=== PATIENT | male | born 1950 | race Caucasian/White ===

== ENCOUNTER 2019-08-12 06:00 | Day surgery (SDC) | payer MEDICARE ==
[2019-08-12] MEDS ORDERED: Sodium Chloride 0.9% 1,000 ML IV SCH (06:30)
[2019-08-12] MEDS ORDERED: Bupivacaine 0.5%/EPINEPHrine 1:200,000 50 ML MDV ONE (06:50)
[2019-08-12] MEDS ORDERED: metroNIDAZOLE/Normal Saline 500 MG in Premix Bag 1 BAG IV ONE (07:00)
[2019-08-12] MEDS ORDERED: ceFAZolin 2 GM in Premix Bag 1 BAG IV ONE (07:00)
[2019-08-12] MEDS ORDERED: Propofol 200 MG/20 ML SDV ONE ×2 (07:17→08:23)
[2019-08-12] MEDS ORDERED: Midazolam 1 MG/ML 2 ML SDV ONE (07:17)
[2019-08-12] MEDS ORDERED: fentaNYL 100 MCG/2 ML SDV ONE (07:17)
[2019-08-12] MEDS ORDERED: Ropivacaine 40 ML, dexAMETHasone 8 MG, EPINEPHrine 0.4 MG, Sodium Chloride 0.9% 37.6 ML NERVRT SCH ×4 (08:30)
[2019-08-12] MEDS ORDERED: Acetaminophen/HYDROcodone 325-5 MG Tab PO ONE (09:29)
[2019-08-12 10:17] VITALS: BP 124/79; PULSE 66
--- NOTE | 2019-08-13 09:03 | OR ---
DATE OF PROCEDURE: 08/12/2019 SURGEON: Andrés Chris MD PROCEDURE: Repair of ventral hernia, midline, 3.5 cm, with mesh. PREOPERATIVE DIAGNOSIS: Ventral hernia, incarcerated. POSTOPERATIVE DIAGNOSIS: Ventral hernia, incarcerated. COMPLICATIONS: None. LOSS CONTROL REPRESENTATIVE: None. ANESTHESIA: MAC/local. RISKS: Risks, benefits, alternatives, and limitations including, but not limited to infection, bleeding, injury to abdominal structures and other risks not listed here were explained to the patient, who wished to proceed. PROCEDURE IN DETAIL: The patient was placed in supine position. The 15 blade was used to excise a vertical incision to the left of the umbilicus. This was then carried down with the plasma blade to the fascia. The sac was identified, opened, and was noted to be incarcerated. The sac was then mobilized and subsequently removed. No evidence of enterotomy or injury was noted. The hernia was measured to be approximately 3.5 cm. This was then repaired by placing the mesh, which is approximately 8 cm, placing in the abdomen, then suturing with interrupted 0 Prolene approximately every 5 mm. The subcutaneous tissue was then closed with 3-0 Vicryl. Skin was closed with 4-0 Vicryl. Dermabond was applied. The patient tolerated the procedure well. Andrés Chris MD /[id number]
--- NOTE | 2019-08-13 09:03 | OR ---
DATE OF PROCEDURE: 08/12/2019 SURGEON: Andrés Chris MD PROCEDURE: Rectus sheath block, bilaterally. COMPLICATIONS: None. FLEXIBLE NANNY: None. RISKS: Risks, benefits, alternatives, and limitations including, but not limited to infection, bleeding, and injury to abdominal structures. PREOPERATIVE DIAGNOSIS: Requirement for nerve block. POSTOPERATIVE DIAGNOSIS: Requirement for nerve block. DESCRIPTION OF PROCEDURE: The patient was placed in the supine position. The left rectus sheath was identified first. This was identified using 13 megahertz ultrasound probe. This was injected with 80% of the solution. The right side was then performed in the same manner, same fashion, same technique, in the same sequence, using the same equipment, except for different needle and syringe. The patient tolerated the procedure well. Andrés Chris MD /[id number]
== END 2019-08-12 10:44 | disposition home or self-care (01) ==
LOC: JP.SDS 06:00
PROVIDERS: ATTEND Surgery
DX: K43.6 Other and unspecified ventral hernia with obstruction, without gangrene (principal); J45.909 Unspecified asthma, uncomplicated; E78.5 Hyperlipidemia, unspecified; F41.9 Anxiety disorder, unspecified; E66.9 Obesity, unspecified; Z91.012 Allergy to eggs; Z68.26 Body mass index [BMI] 26.0-26.9, adult
CPT/HCPCS: 49561; 49568; A9270; C1781; J0171; J0690; J1100; J2250; J2704; J2795; J3010; J3490; J7030; J7050

== ENCOUNTER 2020-05-31 08:46 | Emergency (ER) | payer MEDICARE ==
[2020-05-31 08:59] VITALS: BP 157/99; PULSE 83
[2020-05-31] MEDS ORDERED: Lidocaine 1% with EPINEPHrine 1:100,000 50 ML MDV SUBCUT STA (09:15)
[2020-05-31] MEDS ORDERED: Bacitracin Oint 1 GM U/D Packet TOP ONE (09:15)
--- NOTE | 2020-05-31 09:18 | EDM.PDOC ---
ED HPI GENERAL MEDICAL PROBLEM - General Chief Complaint: Laceration Stated Complaint: CUT BACK OF RIGHT HAND Time Seen by Provider: 05/31/20 09:13 Source of Information: Reports: Patient, Family, RN Notes Reviewed History Limitations: Reports: No Limitations - History of Present Illness INITIAL COMMENTS - FREE TEXT/NARRATIVE: 69-year-old gentleman presents emergency department day with a laceration to the dorsal surface of his hand on the right side he injured himself while he was doing the dishes and a glass broke he has no functional complaints states his tetanus is up-to-date he got it last year - Related Data Allergies Allergy/AdvReac Type Severity Reaction Status Date / Time erythromycin base Allergy Indigestion Verified 05/31/20 09:02 [Erythromycin Base] tree nuts Allergy Severe Difficulty Uncoded 05/31/20 09:02 Breathing raw eggs Allergy Difficulty Uncoded 05/31/20 09:02 Breathing Home Meds: Home Meds ALPRAZolam [Alprazolam] 0.5 mg PO TID PRN 07/27/13 [History] Albuterol [Ventolin HFA] 2 puff INH Q4HR PRN 07/27/13 [History] Sertraline HCl 75 mg PO DAILY 07/27/13 [History] Multivitamin with Minerals [Multiple Vitamin] 1 tab PO DAILY 10/10/14 [History] [place]-3 Fatty Acids [Fish Oil] 1,200 mg PO DAILY 10/10/14 [History] Acetaminophen [Tylenol] 650 mg PO Q6H PRN 08/09/19 [History] Pravastatin [Pravachol] 20 mg PO BEDTIME 08/09/19 [History] Metoprolol Tartrate [Lopressor] 50 mg PO DAILY 05/31/20 [History] Past Medical History HEENT History: Reports: Impaired Vision Other HEENT History: wears glasses Cardiovascular History: Reports: Arrhythmia, High Cholesterol, SOB on Exertion, Other (See Below) Other Cardiovascular History: PVC's Respiratory History: Reports: Asthma, Bronchitis, Recurrent Gastrointestinal History: Reports: Hemorrhoids Musculoskeletal History: Reports: Arthritis Neurological History: Reports: Headaches, Chronic Psychiatric History: Reports: Anxiety - Infectious Disease History Infectious Disease History: Reports: Chicken Pox, Measles, Mumps, Rubella, Shingles - Past Surgical History HEENT Surgical History: Reports: None Cardiovascular Surgical History: Reports: Other (See Below) Other Cardiovascular Surgeries/Procedures: ablasion for irregualr heart beat Respiratory Surgical History: Reports: None GI Surgical History: Reports: Colonoscopy Neurological Surgical History: Reports: None Musculoskeletal Surgical History: Reports: None Dermatological Surgical History: Reports: None Social & Family History - Family History HEENT: Reports: Cataract Cardiac: Reports: Other (See Below) Other Cardiac Family History: heart valve problems-mother GI: Reports: Diverticulitis, Other (See Below) Other GI Family History: colitis; ulcers Musculoskeletal: Reports: Back pain, Chronic Neurological: Reports: Dementia, Other (See Below) Other Neurological Family History: begnign brain tumor Oncologic: Reports: Prostate - Tobacco Use Tobacco Use Status *Q: Never Tobacco User - Caffeine Use Caffeine Use: Reports: None ED ROS GENERAL - Review of Systems Review Of Systems: See Below Musculoskeletal: Reports: No Symptoms Skin: Reports: Wound Neurological: Reports: No Symptoms ED EXAM, SKIN/RASH Exam: See Below Text/Narrative:: Examination of the right hand there is laceration approximately 4 cm dorsal surface of the right hand it is between digits 2 and 3 completely through the dermis no functional complaints can move all digits without difficulty sensation is intact radial pulses +2 Exam Limited By: No Limitations General Appearance: Alert, WD/WN, No Apparent Distress ED SKIN PROCEDURES - Laceration/Wound Repair Right Hand Appearance: Subcutaneous, Linear Distal NVT: Neuro & Vascular Intact, No Tendon Injury Anesthetic Type: Local Local Anesthesia - Lidocaine (Xylocaine): 1% with EPI Local Anesthetic Volume: 3cc Skin Prep: Saline Saline Irrigation (cc's): 60 Exploration/Debridement/Repair: Wound Explored, In a Bloodless Field, Explored to Base Closed with: Sutures Lac/Wound length In cm: 4 Suture Size: 3-0 # of Sutures: 11 Suture Type: Interrupted, Running Sterile Dressing Applied: Nurse Tetanus Status Addressed: Yes Complications: No Course - Vital Signs Last Recorded V/S: Last Vital Signs Temp 97.9 F 05/31/20 08:59 Pulse 83 05/31/20 08:59 Resp 16 05/31/20 08:59 BP 157/99 H 05/31/20 08:59 Pulse Ox 97 05/31/20 08:59 - Orders/Labs/Meds Meds: Medications Discontinued Medications Generic Name Dose Route Start Last Admin Trade Name Freq PRN Reason Stop Dose Admin Bacitracin 1 dose 05/31/20 09:15 05/31/20 09:34 Bacitracin Oint 1 Gm U/D Packet TOP 05/31/20 09:16 1 dose ONETIME ONE Administration Lidocaine/Epinephrine 20 ml 05/31/20 09:15 05/31/20 09:35 Lidocaine 1% With Epinephrine 1:100,000 50 Ml Mdv SUBCUT 05/31/20 09:16 20 ml NOW STA Administration Departure - Departure Time of Disposition: 09:41 Disposition: Home, Self-Care 01 Condition: Good Clinical Impression: Laceration of right hand Qualifiers: Encounter type: initial encounter Foreign body presence: without foreign body Qualified Code(s): S61.411A - Laceration without foreign body of right hand, initial encounter - Discharge Information Instructions: Laceration Care, Adult Referrals: Hiren Panda MD [Primary Care Provider] - Forms: ED Department Discharge Additional Instructions: Suture removal in 10 days follow wound care instruction sheet return to the emergency department or follow-up primary care Sepsis Event Note (ED) - Evaluation Sepsis Screening Result: No Definite Risk - Focused Exam Vital Signs: Vital Signs Temp Pulse Resp BP Pulse Ox 05/31/20 08:59 97.9 F 83 16 157/99 H 97 05/31/20 08:57 97.9 F 83 16 157/99 H 97 - Assessment/Plan Plan: Assessment Acuity = acute Site and laterality = 4 cm laceration right hand Etiology = trauma with glass Manifestations = none Location of injury = Home Lab values = none Plan Suture removal in 10 days follow wound care instruction sheet return to the emergency department or follow-up primary care This note was dictated using Divshot recognition software please call with any questions on syntax or grammar.
== END 2020-05-31 10:03 | disposition home or self-care (01) ==
LOC: JP.ED 08:46
DX: S61.411A Laceration without foreign body of right hand, initial encounter (principal); E78.00 Pure hypercholesterolemia, unspecified; J45.909 Unspecified asthma, uncomplicated; Z88.1 Allergy status to other antibiotic agents; Z91.018 Allergy to other foods; Z91.012 Allergy to eggs; Z79.899 Other long term (current) drug therapy; W25.XXXA Contact with sharp glass, initial encounter
CPT/HCPCS: 12002; 99282-25

== ENCOUNTER 2020-08-24 07:42 | Day surgery (SDC) | payer MEDICARE ==
[2020-08-24] MEDS ORDERED: Propofol 200 MG/20 ML SDV ONE (08:28)
[2020-08-24] MEDS ORDERED: fentaNYL 100 MCG/2 ML SDV ONE (08:28)
[2020-08-24] MEDS ORDERED: Midazolam 1 MG/ML 2 ML SDV ONE ×2 (08:29→09:39)
[2020-08-24] MEDS ORDERED: Sodium Chloride 0.9% 1,000 ML IV SCH (08:30)
[2020-08-24 10:58] VITALS: BP 116/70; PULSE 62
--- NOTE | 2020-08-24 11:58 | OR ---
DATE OF PROCEDURE: 08/24/2020 SURGEON: Andrés Chris MD PROCEDURE: Colonoscopy. PREOPERATIVE DIAGNOSIS: Screening colonoscopy. POSTOPERATIVE DIAGNOSIS: Screening colonoscopy. RISKS: Risks, benefits, alternatives, limitations, including but not limited to infection, bleeding, perforation, false positives and false negatives were explained to the patient who wished to proceed. PROCEDURE IN DETAIL: The patient was placed in left lateral decubitus position. Digital rectal exam was performed without abnormality. Scope was introduced and advanced atraumatically to the ileocecal valve. Scope was brought back to the ascending, transverse, descending colon, and retroflexed. No evidence of old or new blood. No masses. No polyps. No diverticulosis. No abnormalities on retroflexion. Greater than 8 minutes was spent removing the scope. Prep was acceptable, approximately 85% of the luminal surface with some solid and liquid stool remaining. The patient tolerated the procedure well. Andrés Chris MD /[id number]
== END 2020-08-24 10:27 | disposition home or self-care (01) ==
LOC: JP.SDS 07:42
PROVIDERS: ATTEND Surgery
DX: Z12.11 Encounter for screening for malignant neoplasm of colon (principal); J45.909 Unspecified asthma, uncomplicated
CPT/HCPCS: G0121; J2250; J2704; J3010; J7030

== ENCOUNTER 2020-12-20 12:17 | Emergency (ER) | payer MEDICARE ==
[2020-12-20] MEDS ORDERED: busPIRone 10 MG Tab PO ONE (13:51)
--- NOTE | 2020-12-20 14:02 | EDM.PDOC ---
ED HPI GENERAL MEDICAL PROBLEM - General Chief Complaint: General Stated Complaint: POSSIBLE HIGH BLOOD PRESSURE Time Seen by Provider: 12/20/20 13:30 Source of Information: Reports: Patient, Family, RN Notes Reviewed History Limitations: Reports: No Limitations - History of Present Illness INITIAL COMMENTS - FREE TEXT/NARRATIVE: Benigno presents today for complaints of anxiety and elevated blood pressure today. He recently discontinued use of sertraline for anxiety/depression as he had frequent PVCs while taking this with his metoprolol twice a day and recent worsening of cervical pain. He noted he started to take xanax more frequently without use of sertraline. He was provided cymbalta last . He took his first dose of cymbalta Monday. He reports headache and elevated blood pressures of 160-180s over 100s. He checked his blood pressure multiple times today and it remained elevated. Benigno did not take cymbalta today. He did take one xanax today without any improvement of his blood pressure. He denies any difficulty sleeping, any triggers for anxiety, fever, chills, nausea, vomiting, change in bladder/bowel function, change in vision, suicidal/homicidal ideation or plan. Neck Pain Score (Numeric/FACES): 1 - Related Data Allergies Allergy/AdvReac Type Severity Reaction Status Date / Time erythromycin base AdvReac Indigestion Verified 12/20/20 12:45 [Erythromycin Base] tree nuts Allergy Severe Difficulty Uncoded 12/20/20 12:45 Breathing raw eggs Allergy Difficulty Uncoded 12/20/20 12:45 Breathing Home Meds: Home Meds ALPRAZolam [Alprazolam] 0.5 mg PO TID PRN 07/27/13 [History] Albuterol [Ventolin HFA] 2 puff INH Q4HR PRN 07/27/13 [History] Multivitamin with Minerals [Multiple Vitamin] 1 tab PO DAILY 10/10/14 [History] [place]-3 Fatty Acids [Fish Oil] 1,200 mg PO DAILY 10/10/14 [History] Acetaminophen [Tylenol] 650 mg PO Q6H PRN 08/09/19 [History] Pravastatin [Pravachol] 20 mg PO BEDTIME 08/09/19 [History] Metoprolol Tartrate [Lopressor] 50 mg PO BID 05/31/20 [History] Ibuprofen 600 mg PO Q6HR PRN 08/24/20 [History] DULoxetine [Cymbalta] 20 mg PO DAILY 12/20/20 [History] Past Medical History HEENT History: Reports: Impaired Vision Other HEENT History: wears glasses Cardiovascular History: Reports: Arrhythmia, High Cholesterol, SOB on Exertion, Other (See Below) Other Cardiovascular History: PVC's Respiratory History: Reports: Asthma, Bronchitis, Recurrent Gastrointestinal History: Reports: Diverticulosis, Hemorrhoids Musculoskeletal History: Reports: Arthritis, Fracture Neurological History: Reports: Headaches, Chronic Psychiatric History: Reports: Anxiety Dermatologic History: Reports: Eczema - Infectious Disease History Infectious Disease History: Reports: Chicken Pox, Measles, Mumps, Rubella, Shingles - Past Surgical History HEENT Surgical History: Reports: None Cardiovascular Surgical History: Reports: Other (See Below) Other Cardiovascular Surgeries/Procedures: ablasion for irregualr heart beat Respiratory Surgical History: Reports: None GI Surgical History: Reports: Colonoscopy Neurological Surgical History: Reports: None Musculoskeletal Surgical History: Reports: None Dermatological Surgical History: Reports: None Social & Family History - Family History Family Medical History: No Pertinent Family History HEENT: Reports: Cataract Cardiac: Reports: Other (See Below) Other Cardiac Family History: heart valve problems-mother GI: Reports: Diverticulitis, Other (See Below) Other GI Family History: colitis; ulcers Musculoskeletal: Reports: Back pain, Chronic Neurological: Reports: Dementia, Other (See Below) Other Neurological Family History: begnign brain tumor Oncologic: Reports: Prostate - Tobacco Use Tobacco Use Status *Q: Never Tobacco User - Caffeine Use Caffeine Use: Reports: Soda Other Caffeine Use: minimal caffeine use according to patient - Recreational Drug Use Recreational Drug Use: No ED ROS GENERAL - Review of Systems Review Of Systems: See Below Constitutional: Reports: No Symptoms HEENT: Reports: No Symptoms Respiratory: Reports: No Symptoms Cardiovascular: Reports: Blood Pressure Problem. Denies: Chest Pain, Claudication, Dyspnea on Exertion, Edema, Lightheadedness, Orthopnea, Palpitations, PND, Syncope Endocrine: Reports: No Symptoms GI/Abdominal: Reports: No Symptoms : Reports: No Symptoms Musculoskeletal: Reports: No Symptoms Skin: Reports: No Symptoms Neurological: Reports: Headache (dull headache to base of skull with radiation to temporal areas - declines medication for headache stating the pain is not bad. ) Psychiatric: Reports: Anxiety. Denies: Agitation, Confusion, Cravings, Depression, Hallucinations, Homicidal Ideation, Mood Lability, Suicidal Ideation Hematologic/Lymphatic: Reports: No Symptoms Immunologic: Reports: No Symptoms ED EXAM, GENERAL - Physical Exam Exam: See Below Exam Limited By: No Limitations General Appearance: Alert, WD/WN, Anxious Eye Exam: Bilateral Eye: Normal Inspection, PERRL Ears: Normal External Exam, Normal Canal, Hearing Grossly Normal, Normal TMs Nose: Normal Inspection, Normal Mucosa, No Blood Throat/Mouth: Normal Inspection, Normal Lips, Normal Teeth, Normal Gums, Normal Oropharynx, Normal Voice, No Airway Compromise Head: Atraumatic, Normocephalic Neck: Normal Inspection, Supple, Non-Tender, Full Range of Motion. No: Lymphadenopathy (R), Lymphadenopathy (L) Respiratory/Chest: No Respiratory Distress, Lungs Clear, Normal Breath Sounds, No Accessory Muscle Use, Chest Non-Tender. No: Crackles, Rales, Rhonchi, Wheezing, Stridor, Retractions, Splinting Cardiovascular: Normal Peripheral Pulses, Regular Rate, Rhythm, No Edema, No Gallop, No Murmur, No Rub Peripheral Pulses: 4+: Radial (L), Radial (R), Dorsalis Pedis (L), Dorsalis Pedis (R) GI/Abdominal: Normal Bowel Sounds, Soft, Non-Tender, No Organomegaly, No Distention, No Mass. No: Guarding, Rigid, Rebound, Tender (Male) Exam: Deferred Rectal (Males) Exam: Deferred Back Exam: Normal Inspection, Full Range of Motion. No: CVA Tenderness (R), CVA Tenderness (L) Extremities: Normal Inspection, Normal Range of Motion, Non-Tender, No Pedal Edema, Normal Capillary Refill Neurological: Alert, Oriented, CN II-XII Intact, Normal Cognition, Normal Gait, Normal Reflexes, No Motor/Sensory Deficits Psychiatric: Normal Affect, Normal Mood, Anxious Skin Exam: Warm, Dry, Intact, Normal Color, No Rash Lymphatic: No Adenopathy Course - Vital Signs Last Recorded V/S: Last Vital Signs Temp 36.7 C 12/20/20 12:42 Pulse 75 12/20/20 14:35 Resp 20 12/20/20 14:35 BP 141/90 H 12/20/20 14:35 Pulse Ox 96 12/20/20 14:35 - Orders/Labs/Meds Meds: Medications Discontinued Medications Generic Name Dose Route Start Last Admin Trade Name Petra PRN Reason Stop Dose Admin Buspirone HCl 10 mg 12/20/20 13:51 12/20/20 14:33 Buspirone 10 Mg Tab PO 12/20/20 13:52 10 mg ONETIME ONE Administration Discussed patient history, medications taken in past. He would like to stop use of cymbalta. He will stop use of cymbalta, try use of buspirone as directed and follow up with his primary for ongoing care. Education provided on blood pressure management, deep breathing, use of yoga and medication as well as counseling to help with anxiety. Patient and his in agreement with plan. Departure - Departure Time of Disposition: 13:54 Disposition: Home, Self-Care 01 Condition: Good Clinical Impression: Anxiety, Elevated blood pressure, situational - Discharge Information Instructions: Managing Anxiety, Adult Referrals: Hiren Panda MD [Primary Care Provider] - Forms: ED Department Discharge Additional Instructions: You have been evaluated and treated for anxiety and hypertension. Continue your current metoprolol dose as ordered. Stop cymbalta as this did not make you feel well. You can try use of buspirone 5mg by mouth three times a day for anxiety. If this does not help your anxiety well, take xanax as directed. Consider use of yoga and meditation to help with neck pain and anxiety. Follow up with Dr. Panda in 7 to 10 days for recheck. I am not sure if use of propanolol would help (instead of metoprolol) or restarting your sertraline would work best for you (or trying a different antidepressant). Dr. Panda would know best if you should try a different medication. Recheck of blood pressure while in emergency room 149/85. Avoid checking your blood pressure more then twice a day. Return to emergency room for any worsening, issues, thoughts of suicide/homicide or any other concerns. Follow up with Dr. Panda. Sepsis Event Note (ED) - Evaluation Sepsis Screening Result: No Definite Risk - Focused Exam Vital Signs: Vital Signs Temp Pulse Resp BP Pulse Ox 12/20/20 14:35 75 20 141/90 H 96 12/20/20 12:42 36.7 C 76 18 155/89 H 96 - Assessment/Plan Assessment:: Anxiety, Elevated blood pressure, situational Plan: Patient evaluated and treated for anxiety and hypertension. Continue current metoprolol dose as ordered. Stop cymbalta as this did not make him feel well. Try use of buspirone 5mg by mouth three times a day for anxiety. If this does not help anxiety, take xanax as directed. Consider use of yoga and meditation to help with neck pain and anxiety. Follow up with Dr. Panda in 7 to 10 days for recheck. I am not sure if use of propanolol would help (instead of metoprolol) or restarting sertraline would work best for patient (or trying a different antidepressant). Dr. Panda would know best if he should try a different medication. Recheck of blood pressure while in emergency room 149/85. Avoid checking blood pressure more then twice a day. Return to emergency room for any worsening, issues, thoughts of suicide/homicide or any other concerns. Follow up with Dr. Panda.
[2020-12-20 14:37] VITALS: BP 141/90; PULSE 75
== END 2020-12-20 14:45 | disposition home or self-care (01) ==
LOC: JP.ED 12:17
DX: F41.9 Anxiety disorder, unspecified (principal); I10 Essential (primary) hypertension; E78.00 Pure hypercholesterolemia, unspecified; Z88.1 Allergy status to other antibiotic agents; Z91.09 Other allergy status, other than to drugs and biological substances; Z91.012 Allergy to eggs; Z79.899 Other long term (current) drug therapy
CPT/HCPCS: 99283; A9270